=== PATIENT | female | born 1930 | race Caucasian/White ===

== ENCOUNTER 2019-04-22 10:40 | Inpatient (IN) | payer OTHER ==
[~2019-04-22] VITALS: Ht 154.9 cm; Wt 53.7 kg
[~2019-04-22 10:40] MED LIST: ADULT LOW DOSE81 MG PO; ALPRAZOLAM 0.50.5 M1 PO; CALCIUM 500 +1 EAC5 PO; CELEXA20 MG PO; CELEXA40 MG PO; CLONIDINE0.1 PO; COREG3.125 MG PO; COZAAR 50 MG TA50 M2 PO; ENALAPRIL MALEA20 MG PO; FISH OIL 1,0001 EAC5 PO; GARAMYCIN5 M1 OPHTHALMIC; GEMFIBROZIL 60600 MG PO; HYDROCHLOROTHIA25 M1 PO; HYDROCHLOROTHIA25 M2 PO; KLOR-CON 1010 MEQ PO; MULTIVITAMINS PO; NORVASC2.5 MG PO; NORVASC5 MG PO; PHENERGAN 25 MG25 M1 PO; PROTONIX40 M2 PO; VITAMIN D1000 UNI1 PO; ZANAFLEX4 MG PO
--- NOTE | 2019-04-22 13:53 | NUR ---
REC PT AROUND 1345, SET UP ON TELE, SEE SEPARATE INTERVENTIONS, CAME IN WITH R HIP FRACTURE, WHEN ASKED ABOUT PAIN, SHE JUST GIGGLED, THEN I WALKED IN AND SHE WAS MOANING. SAID HER LEG HURT. A&0X1, HX DEMENTIA. WILL FINISH ADMISSION AND LET PHYSICIAN KNOW IT'S DONE FOR HIS REVIEW. BED ALARM ENGAGED.
[2019-04-22] MEDS ORDERED: ALPRAZOLAM XR3 MG PO ×2 (13:57→13:58)
[2019-04-22] MEDS ORDERED: FLORAJEN460 MG PO (13:59)
[2019-04-22] MEDS ORDERED: BENGAY113 GM TRANSDERM (14:00)
[2019-04-22] MEDS ORDERED: MAGNESIUM250 M1 PO (14:01)
[2019-04-22] MEDS ORDERED: CALCIUM GLUCON500 GM PO (14:02)
[2019-04-22] MEDS ORDERED: CITRUCEL479 GM PO (14:03)
[2019-04-22] MEDS ORDERED: MAPAP16 MG/0.5 PO (14:05)
[2019-04-22] MEDS ORDERED: LOPERAMIDE2 MG PO (14:06)
[2019-04-22] MEDS ORDERED: MILK OF MA400 MG/5 M PO (14:07)
[2019-04-22] MEDS ORDERED: SEROQUEL 25 MG25 MG PO (14:07)
--- NOTE | 2019-04-22 14:36 | NUR ---
FAMILY ARRIVED, SON AND DAUGHTER IN LAW, ADDED IN SON'S NAME. DAUGHTER IN LAW STATES DNR
[2019-04-22 15:00] VITALS: BP 175/85
[2019-04-22 15:57] LABS: BASOPHILS 0.4 % (0.0-2.0); EOSINOPHILS 0.1 % (0.0-3.0); HEMATOCRIT 42.8 % (37.0-47.0); HEMOGLOBIN 13.3 gm/dL (12.0-15.0); LYMPHOCYTES 5.2 % (24.0-44.0); MCH 28.8 pg (26.0-34.0); MCHC 31.2 g/dL (28.0-37.0); MCV 92.3 fL (80.0-100.0); MONOCYTES 5.2 % (1.0-8.0); POLYS 89.1 % (36.0-66.0); RBC 4.63 mil/uL (4.20-5.00); WBC 11.2 thou/uL (4.0-11.0)
[2019-04-22 16:09] LABS: ALBUMIN 3.9 g/dL (3.4-5.0); CALCIUM 10.2 mg/dL (8.5-10.1); CREATININE 1.2 mg/dL (0.6-1.0); POTASSIUM 3.5 mmol/L (3.5-5.1); TOTAL BILIRUBIN 1.4 mg/dL (<0.1-1.0); TOTAL PROTEIN 7.8 g/dL (6.4-8.2)
[2019-04-22 16:37] LABS: PLATELET COUNT 90 thou/uL (150-400)
[2019-04-22 18:20] VITALS: BP 140/58
[2019-04-22 19:58] VITALS: BP 147/79
--- NOTE | 2019-04-22 22:35 | NUR ---
PATIENT ASSESSED AND IS ALERT X 1-2. SKIN WARM AND DRY. RESP ROE AND UNLABORED. HAS SOME DEMENTIA NOTED. SANTANA INTACT WITH URINE RETURN. HAS A AHEART MURMER NOTED. LEFT ARM SL FLUSHES WELL. LOOKS HEALTHY. HAS A FX OF LEFT FEMUR. IS AN DNR. BED ALARM ON. SKIN OKAY WITH NO SKIN ISSUES NOTED. TAKES MEDIACATION WELL. IS [employer] [place]. ON A REG DIET. ENCOURGED TO DRINK MORE. INCONT F BOWEL AT TIMES. REMAINS CONFUSED AT TIMES. ANSWERS APPRIOPRIATELY. CONT PLAN OF CARE.
[2019-04-23] VITALS (12 sets, daily range): BP systolic 102–157; BP diastolic 43–98
[2019-04-23 04:02] LABS: HEMATOCRIT 37.9 % (37.0-47.0); HEMOGLOBIN 11.8 gm/dL (12.0-15.0); MCH 28.8 pg (26.0-34.0); MCV 92.9 fL (80.0-100.0); RBC 4.08 mil/uL (4.20-5.00); RDW 16.6 % (10.5-14.5); WBC 8.7 thou/uL (4.0-11.0)
[2019-04-23 04:17] LABS: CALCIUM 9.2 mg/dL (8.5-10.1); CREATININE 1.2 mg/dL (0.6-1.0); POTASSIUM 3.3 mmol/L (3.5-5.1)
--- NOTE | 2019-04-23 04:42 | NUR ---
PATIENT REMAINS CONFUSED AT TIMES. PAIN MEDICATION GIVEN FOR RIGHT HIP PAIN. REPOSITIONED NEEDED. IV SITE HEALTHY. CONT PLAN OF CARE. SANTANA INTACT WITH EMILEE STINKY URINE.
--- NOTE | 2019-04-23 06:01 | NUR ---
CONSULT CALLED AND DR ESQUIVEL ALREADY SEEN HER. PLACED HER IN NPO.
--- NOTE | 2019-04-23 11:22 | NUR ---
ORDERS RECEIVED FOR PT EVAL AND TREAT. Pt WITH DISPLACED RIGHT FEMORAL NECK FX WITH PLANS FOR SURGERY PER ORTHO. WILL NEED UPDATED PT ORDERS S/P SURGICAL INTERVENTION PRIOR TO INITIATING PT SERVICES WITH Pt.
--- NOTE | 2019-04-23 17:25 | NUR ---
ASSUMMED PT CARE AT APPROXIMATELY 1430. PT AWAKE AND ORIENTED TO SELF. PT C HX OF DEMENTIA. PT GAURDING R LOWER HIP AND STATED SHE HAD PAIN. PT RECEIVED ANALGESICS. PT WAS NOT GAURDING HER R HIP AFTER ANALGESICS. PT AND PT'S FAMILY EDUCATED ABOUT POC. PT AND PT'S FAMILY STATED UNDERSTANDING AND DENIED HAVING FURTHER QUESTIONS. PT COMFORTABLE IN BED. PT DENIES FURTHER CONCERNS. ASSESSMENT CHARTED. VITAL SIGNS STABLE. PT R HIP DRESSING C/D/I.
[2019-04-24 04:08] VITALS: BP 105/43
[2019-04-24 04:51] LABS: HEMATOCRIT 28.9 % (37.0-47.0); MCH 29.4 pg (26.0-34.0); MCHC 31.1 g/dL (28.0-37.0); MCV 94.6 fL (80.0-100.0); RBC 3.06 mil/uL (4.20-5.00); RDW 16.6 % (10.5-14.5); WBC 8.8 thou/uL (4.0-11.0)
[2019-04-24 05:00] LABS: CALCIUM 8.6 mg/dL (8.5-10.1); CREATININE 1.2 mg/dL (0.6-1.0); POTASSIUM 4.3 mmol/L (3.5-5.1)
--- NOTE | 2019-04-24 06:45 | NUR ---
ASSUMED PT CARE AROUND 1900. PT RESTING IN BED. PT VSS WITH NO C/O OF PAIN. PT DRESSING C/D/I. PT RESTED THRU NIGHT WITH MINIMAL INTERRUPTIONS. WILL CONTINUE TO MONITOR PT PER POC.
[2019-04-24 07:20] VITALS: BP 115/55
--- NOTE | 2019-04-24 10:38 | 2DMMODE ---
[facility] [address] [place] [address] 2 D/M-MODE ECHOCARDIOGRAM Name: MECHELLE BYERS Room #: 214-P ADM IN M.R.#: [id number] Admission: 04/22/19 Attend Phys: Giovanni Loera Discharge: Date of : 10/23/[birth year] Report #: [id number] THIS REPORT FOR: //name// APPROVED REPORT Study performed: 04/24/2019 08:57:05 EXAM: Comprehensive 2D, Doppler, and color-flow Echocardiogram Patient Location: Bedside Room #: 214 Status: routine BSA: 1.50 HR: 85 bpm BP: 105/43 mmHg Rhythm: NSR Other Information Study Quality: Good Indications Aortic Valve Disease Congestive Heart Failure Mitral Valve Disease Hypertension/HDD 2D Dimensions RVDd: 39.52 mm IVSd: 11.68 (7-11mm) LVOT Diam: 17.80 (18-24mm) LVDd: 45.64 mm PWd: 12.61 (7-11mm) Ascending Ao: 26.15 (22-36mm) LVDs: 36.87 (25-40mm) Aortic Root: 26.11 mm IVC: 21.00 mm Volumes Left Atrial Volume (Systole) Single Plane 4CH: 60.45 mL Single Plane 2CH: 50.39 mL LA ESV Index: 41.00 mL/m2 Aortic Valve AoV Peak Pablo.: 5.77 m/s AO Peak Gr.: 133.22 mmHg LVOT Max P.81 mmHg AO Mean Gr.: 89.65 mmHg LVOT Mean P.83 mmHg AO V2 Mean: 4.56 m/s LVOT Max V: 0.67 m/s AO V2 VTI: 142.85 cm LVOT Mean V: 0.42 m/s ROSA (VTI): 0.22 cm2 LVOT V1 VTI: 12.61 cm [facility] [place] [address] [place] [address] 2 D/M-MODE ECHOCARDIOGRAM Name: MECHELLE BYERS Room #: 214-P [facility] IN ..#: [id number] Admission: 04/22/19 Attend Phys: Giovanni Loera Discharge: Date of : 10/23/[birth year] Report #: [id number] ROSA Vmax: 0.29 cm2 SV (LVOT): 31.37 mL Mitral Valve E/A Ratio: 1.7 MV Decel. Time: 110.81 ms MV E Max Pablo.: 1.44 m/s MV A Pablo.: 0.86 m/s MV PHT: 32.13 ms IVRT: 73.82 ms Pulmonary Valve PV Peak Pablo.: 0.65 m/s PV Peak Gr.: 1.69 mmHg Pulmonary Vein P Vein S: 0.16 m/s P Vein A: 0.18 m/s P Vein D: 0.21 m/s P Vein A Dur.: 73.8 msec P Vein S/D Ratio: 0.76 Tricuspid Valve TR Peak Pablo.: 4.03 m/s TR Peak Gr.: 65.11 mmHg PA Pressure: 80.00 mmHg Left Ventricle The left ventricle is normal size. There is global hypokinesis of the left ventricle. Mild concentric left ventricular hypertrophy. Left ventricular ejection fraction is moderately decreased. LVEF is 35%. Grade IV - fixed restrictive diastolic dysfunction. Right Ventricle The right ventricle is normal size. Atria Left atrium is dilated. Right atrium is dilated. Aortic Valve Aortic valve is heavily calcified. Mild aortic regurgitation. Severe aortic stenosis. Mitral Valve There is mitral annular calcification. Moderate mitral regurgitation. No evidence of mitral valve stenosis. Tricuspid Valve The tricuspid valve is normal in structure. There is moderate [facility] [address] [place] [address] 2 D/M-MODE ECHOCARDIOGRAM Name: MECHELLE BYERS Room #: 214-P [facility] IN ..#: [id number] Admission: 04/22/19 Attend Phys: Giovanni Loera Discharge: Date of : 10/23/[birth year] Report #: [id number] tricuspid regurgitation. Estimated PAP 70 mmHg. There is severe pulmonary hypertension. Pulmonic Valve The pulmonary valve is normal in structure. Mild pulmonic regurgitation. Great Vessels The aortic root is normal in size. The inferior vena cava is dilated with no inspiratory collapse. Pericardium Small to moderate posterior pericardial effusion. <Conclusion> The left ventricle is normal size. Mild concentric left ventricular hypertrophy. Left ventricular ejection fraction is moderately decreased. Grade IV - fixed restrictive diastolic dysfunction. The right ventricle is normal size. Left atrium is dilated. Aortic valve is heavily calcified. Severe aortic stenosis. Moderate mitral regurgitation. There is moderate tricuspid regurgitation. Estimated PAP 70 mmHg. There is severe pulmonary hypertension. Small to moderate posterior pericardial effusion. <ELECTRONICALLY SIGNED> By: Bridger Pimentel MD 04/24/19 1037 1037 [id number] Bridger Pimentel MD /INF
--- NOTE | 2019-04-24 11:54 | NUR ---
PT ADMITTED RELATED TO FALL AND FX R HIP. PT IS POD #1 S/P ORIF YESTERDAY. CM CALLED AND SPOKE WITH PT'S PT'S SON ALIZA BYERS HE'S LISTED DPOA. HE INDICATED THAT PT HAD BEEN LIVING AT [facility] AND THAT SHE HAD USED A FWW TO ASSIST WITH MOBILITY. PT'S DTR HAD BEEN AT [facility] BUT WAS OUT OR ROOM WHEN CM VISITED THIS AM. SON INDICATED THEY WERE INTERESTED IN PT RETURNING TO [facility] SKILLED UPON DC. CM ASKED DC WIRE SPLICER TO FAX REFERRAL OVER TO THEM FOR REVIEW FOR POSSIBLE ADMISSION. CM TO FOLLOW INDICATED WITH DC PLANNING.
[2019-04-24 12:05] VITALS: BP 84/44
--- NOTE | 2019-04-24 13:34 | NUR ---
[facility] RESID[facility] AT THEIR LTC UNIT. SPOKE WITH SHANA IN ADM THEY WILL ACCEPT FOR SKILLED STAY. SHE IS REQUESTING THAT ALL THERAPIES ARE ORDERED (OT,PT,ST) AT DISCHARGE. DP TO FOLLOW.
[2019-04-24 15:25] VITALS: BP 85/51
--- NOTE | 2019-04-24 16:58 | NUR ---
ASSUMED CARE 0700. ALERT TO SELF ONLY. DTR STATES HER CONFUSSION IS WORSE WHILE IN HOSPTIAL. POOR INTAKE. 500ML BOLUS TO TX HYPOTENSION. COMPLIANT WITH OT AND PT. UP TO CHAIR FOR 2 HOURS. CALLING OUT FOR SISTER YULISSA. TX ANXIETY THAT IS NOT AFFECTING. DRESSING TO RIGHT HIP IS C/D/I. FALL PRECAUTIONS IN PLACE. STAFF OVERSITE FOR NEEDS UNABLE TO DEMONSTRATE CALL LIGHT.
[2019-04-24 19:48] VITALS: BP 127/88
[2019-04-24 23:35] VITALS: BP 109/54
[2019-04-25 05:09] VITALS: BP 112/55
[2019-04-25 05:15] LABS: HEMATOCRIT 26.1 % (37.0-47.0); HEMOGLOBIN 8.1 gm/dL (12.0-15.0); MCH 29.2 pg (26.0-34.0); MCHC 30.9 g/dL (28.0-37.0); MCV 94.5 fL (80.0-100.0); RBC 2.77 mil/uL (4.20-5.00); RDW 16.9 % (10.5-14.5)
--- NOTE | 2019-04-25 05:17 | NUR ---
ASSUMED PT CARE AT 1900, PT ALERT AND ORIENTED TO SELF, CALLING FOR HELP WITH S/S OF PAIN, PAIN MED GIVED ORDERED WITH PARTIAL RELIEF, PT REFUSED PO MEDS ASSESSMENTS CHARTED, DRESSING TO THE RIGHT HIP DRY AND INTACT, PATIENT RESTING AT THIS TIME, WILL CONTINUE TO MONITOR
[2019-04-25 05:29] LABS: CALCIUM 8.9 mg/dL (8.5-10.1); POTASSIUM 5.3 mmol/L (3.5-5.1)
[2019-04-25 05:42] LABS: CREATININE 2.2 mg/dL (0.6-1.0)
[2019-04-25 07:30] VITALS: BP 121/64
--- NOTE | 2019-04-25 09:53 | NUR ---
per phys not stable for dc today creatine chaparro. Plan dc . updated facility.
[2019-04-25 15:37] VITALS: BP 101/53
--- NOTE | 2019-04-25 18:04 | NUR ---
ASSUMED CARE 0700. SLEEPING ON MORNING REPORT. AWAKE AND RESTLESS WITH REPEATING COMMENT ABOUT WATER. DTR AND SON BESIDE VOICE PT HAS CHRONIC BACK PAIN AND LOOKS UNCOMFORTABLE. PT GRIMACING AND TRYING TO READJUST SELF AND BECOMING ADGITATED. FAMILY AGREED CHANGE IN PT BEHAVIOUR IS PAIN RELATED. PAIN MANAGED WITH MEDIATION AND REPOSITIONING. PT HAS POOR INTAKT. SLEPT THIS AFTERNOON. FOOD AND WATER ENCOURAGED AT DINNER. PATIENT REMAINS DROWSY. REPOSITIONED. NOTIFIED PHYSICIAN OF POOR INTAKE AND OUTPUR. ORDERS TO KEEP SANTANA FOR ANOTHER 24 HOURS. CONTINUE TO MONITOR. FALL PRECAUTIONS IN PLACE. STAFF TO ANTICIPATE NEEDS.
[2019-04-25 19:18] VITALS: BP 90/56
--- NOTE | 2019-04-26 04:14 | NUR ---
Patients cares were assumed at 2300. patient was assessed and meds were passed. The patient had less yelling out this shift. meds were given. HOURLY ROUNDS WERE MADE, THE BED IS IN A LOW AND LOCKED POSITION. THE BED ALARM IS ON
[2019-04-26 05:17] VITALS: BP 100/49
[2019-04-26 07:45] LABS: CALCIUM 9.2 mg/dL (8.5-10.1); CREATININE 2.4 mg/dL (0.6-1.0); POTASSIUM 5.6 mmol/L (3.5-5.1)
[2019-04-26 08:32] VITALS: BP 118/50
[2019-04-26 11:31] VITALS: BP 135/105
[2019-04-26 15:56] VITALS: BP 113/41
[2019-04-26 20:31] VITALS: BP 130/41
--- NOTE | 2019-04-27 05:04 | NUR ---
PROGRESS PT A/O X4 VSS, UP WITH SBA. TOLERATING DIET IN ADEQUATE AMOUNTS. DENIES HEADACHE OR NEED FOR PAIN MEDICATION AT THIS TIME. PT UP AD AMY VOIDING QS. SCHEDULED FOR CAROTID US, ECHO, PT NPO AFER MN PENDING PROCEDURES . CONTINUE PLAN OF CARE
[2019-04-27 05:42] LABS: ALBUMIN 2.9 g/dL (3.4-5.0); CALCIUM 8.2 mg/dL (8.5-10.1); CREATININE 2.4 mg/dL (0.6-1.0); PHOSPHORUS 4.2 mg/dL (2.5-4.9); POTASSIUM 5.3 mmol/L (3.5-5.1)
--- NOTE | 2019-04-27 06:56 | NUR ---
PROGRESS PT CONFUSED AND YELLING OUT ALL NIGHT UNABLE TO RE-ORIENT. PAIN MEDICATION GIVEN WITH VERY LITTLE EFFECT, REMOVING CLOTHES AND TELEMETRY PATCHES. DRSG TO RIGHT HIP C/D/I PEDAL PULSE POSITIVE, BRISK CAP REFILL ABLE TO DORSI AND PEDAL FLEX. UNABLE TO RATE PAIN. SCD'S AND [address] IVF'S INFUSING ORDERED, REPOSITIONED Q2HRS PT ABLE TO REMOVE PILLOWS AT WILL ENCOURAGED TO STAY TURNED TO PREVENT BEDSORES.
[2019-04-27 08:00] VITALS: BP 122/67
[2019-04-27 09:50] LABS: MCHC 30.7 g/dL (28.0-37.0); MCV 94.4 fL (80.0-100.0); RBC 2.76 mil/uL (4.20-5.00); RDW 17.1 % (10.5-14.5); WBC 17.2 thou/uL (4.0-11.0)
[2019-04-27 10:53] LABS: ANISOCYTOSIS 1+; METAMYELOCYTES 1 %
[2019-04-27 10:54] LABS: PLATELET COUNT 55 thou/uL (150-400)
[2019-04-27 10:55] LABS: HYPOCHROMASIA 1+; POLYCHROMASIA OCCASIONAL
[2019-04-27 12:00] VITALS: BP 123/60
--- NOTE | 2019-04-27 13:11 | NUR ---
Case discussed with the care team. Pt with poor intake, CXR and xray of abd pending. Worsening delierium. The attending visited with the pt's son this am regarding her plan of care. [facility] can accept the pt tomorrow or on Wednesday. They do not take weekend admissions and they can not provide transport. The pt may need [facility] arranged if unable to tolerate w/c van at al. Will follow.
[2019-04-27 15:50] LABS: URINE BILIRUBIN NEGATIVE (Negative); URINE BLOOD 1+ (Negative); URINE CLARITY CLOUDY; URINE COLOR YELLOW; URINE GLUCOSE-RANDOM* NEGATIVE (Negative); URINE KETONES NEGATIVE (Negative); URINE NITRITE-REFLEX NEGATIVE (Negative); URINE PROTEIN (DIPSTICK) NEGATIVE (Negative); URINE SPECIFIC GRAVITY 1.025 (1.005-1.035); URINE UROBILINOGEN 0.2 E.U./dl (0.2-1.0)
[2019-04-27 15:56] LABS: URINE LEUKOCYTES-REFLEX 2+ (Negative)
[2019-04-27 16:00] VITALS: BP 117/60
[2019-04-27 16:04] LABS: AMORPHOUS URATES Many /LPF (None Seen); SQUAMOUS None Seen /LPF (0-3)
[2019-04-27 16:05] LABS: BACTERIA-REFLEX 1-9 Few /HPF (None Seen); CASTS None Seen /LPF (None Seen); URINE RBC None Seen /HPF (0-2); URINE WBC-REFLEX 6-15 Few /HPF (0-5)
--- NOTE | 2019-04-27 17:59 | NUR ---
PT ALERT AND ORIENTED TO SELF. MOANING IN PAIN. PRN IV PAIN MED GIVEN WITH PARTIAL RELIEF. TURNED AND REPOSITIONED Q 2 HOURS AND NEEDED. HAD BM THIS SHIFT. RIGHT HIP INCISION C/D/I. APPETITE POOR. EVALUATED BY SPEECH. NPO ORDER FOR NOW. PPN ORDERED. FALL PRECAUTION IN PLACE. SON UPDATED ON PT'S PROGRESS. WILL CONTINUE TO MONITOR.
[2019-04-27 20:00] VITALS: BP 117/63
[2019-04-27 20:17] LABS: ABSOLUTE RETIC COUNT 0.1485 10^6/uL; OBSERVED RETIC COUNT 4.68 % (0.6-2.6)
[2019-04-27 20:34] LABS: APTT 35.4 Seconds (24.5-32.8); FIBRINOGEN 180.5 mg/dL (210-360); PROTIME 20.7 Seconds (9.3-11.4)
[2019-04-27 20:42] LABS: D-DIMER 16.32 ug/mLFEU (0.19-0.50)
[2019-04-28 03:06] LABS: IgA 498 mg/dL (64-422); IgG 873 mg/dL (700-1600); IgM 48 mg/dL (26-217)
[2019-04-28 03:16] VITALS: BP 138/71
[2019-04-28 03:23] LABS: BASOPHILS 0.5 % (0.0-2.0); HEMATOCRIT 30.9 % (37.0-47.0); HEMOGLOBIN 9.3 gm/dL (12.0-15.0); LYMPHOCYTES 4.2 % (24.0-44.0); MCH 28.7 pg (26.0-34.0); MCHC 30.1 g/dL (28.0-37.0); MCV 95.4 fL (80.0-100.0); MONOCYTES 5.7 % (1.0-8.0); PLATELET COUNT 75 thou/uL (150-400); POLYS 89.6 % (36.0-66.0); RBC 3.24 mil/uL (4.20-5.00); RDW 17.2 % (10.5-14.5); WBC 17.7 thou/uL (4.0-11.0)
[2019-04-28 03:35] LABS: CALCIUM 8.7 mg/dL (8.5-10.1); CREATININE 1.6 mg/dL (0.6-1.0); MAGNESIUM 2.6 mg/dL (1.8-2.4)
[2019-04-28 03:42] LABS: POTASSIUM 5.6 mmol/L (3.5-5.1)
--- NOTE | 2019-04-28 04:41 | NUR ---
PATIENT CARES WERE ASSUMED AT SHIFT CHANGE. PATIENT WAS ASSESSED AND MEDS WEEE PASSED. HOURLY ROUNDING WAS DONE. THE BED IS IN A LOW AND LOCKED POSITION. THE BED ALARM IS ON
[2019-04-28 08:00] VITALS: BP 134/65
--- NOTE | 2019-04-28 10:11 | NUR ---
VASCULAR ACCESS NURSE NOTIFIED TO PLACE A PICC LINE FOR PPN AND ACCESS. THE PATIENTS RN IS PAGING DR. MACKAY TO SEE IF A PICC IS NEEDED, NO CONSENT FOR A PICC AT THIS TIME. STAFF HAS PLACED A PIV FOR ACCESS. I WILL AWAIT RETURN CALL IF PICC IS NEEDED
--- NOTE | 2019-04-28 11:31 | NUR ---
Nutrition: REC consider adding 250 mL 20% lipids daily to PPN to better meet needs til diet advancement possible.
--- NOTE | 2019-04-28 15:52 | NUR ---
FAXED CLINICAL UPDATE TO [facility] SPOKE WITH EBONY AT FACILITY SHE REQUESTED REFAXING UPDATE RECEIVED CONFIRMATION. DP TO FOLLOW.
[2019-04-28 16:00] VITALS: BP 152/56
--- NOTE | 2019-04-28 17:09 | NUR ---
ASSESSMENTS AND INTERVENTIONS DOCCUMENTED. PATIENT RESTLESS AND MOANING AT SHIFT CHANGE. PAIN MEDICATION UNABLE TO BE GIVENT BECAUSE PATIENT DID NOT HAVE IV ACCESS. NIGHT RN GUICHO STATING PICC LINE WAS ORDERED. NO ORDERS WRITTEN. THOMPSON CHAMBERLAIN. RN PLACED PERIPHERAL AT BEDSIDE. PAIN MEDICATION GIVEN AND PATIENT MORE COMFORTABLE. SON AT BEDSIDE CONCERNED ABOUT PATIENT AND PAIN MANAGEMENT. SON UPDATED ABOUT PLAN OF CARE. SURGICAL DRESSING CHANGED BY RN. THE PLAN OF CARE IS TO TREAT INFECTION AND PAIN MANAGEMENT
[2019-04-28 21:00] VITALS: BP 118/51
[2019-04-29 04:45] VITALS: BP 101/83
[2019-04-29 08:15] VITALS: BP 114/55
--- NOTE | 2019-04-29 08:16 | NUR ---
ASSUME CARE 1900. PT A/O TO SELF. NOTED CONFUSION ALL THROUGH THE NIGHT. PATIENT MOANING AND RESTLESS, BUT CANNOT COMMUNICATE NEEDS. RIGHT HIP DRESSING CDI. FENTANYL GIVEN TO PATIENT FOR PAIN RELIEF. ASSESSMENT CHARTED. POOR PROGRESSING WITH POC. WILL CONTINUE TO MONITOR AND FOLLOW POC
[2019-04-29 11:24] LABS: HEMOGLOBIN 9.5 gm/dL (12.0-15.0); MCHC 30.2 g/dL (28.0-37.0); WBC 18.1 thou/uL (4.0-11.0)
[2019-04-29 11:26] LABS: HEMATOCRIT 31.3 % (37.0-47.0); MCH 28.8 pg (26.0-34.0); MCV 95.6 fL (80.0-100.0); RBC 3.28 mil/uL (4.20-5.00); RDW 17.4 % (10.5-14.5)
[2019-04-29 11:34] LABS: CREATININE 1.4 mg/dL (0.6-1.0); MAGNESIUM 2.6 mg/dL (1.8-2.4); POTASSIUM 4.7 mmol/L (3.5-5.1)
[2019-04-29 11:48] LABS: CALCIUM 8.8 mg/dL (8.5-10.1)
[2019-04-29 12:00] VITALS: BP 133/69
--- NOTE | 2019-04-29 12:52 | NUR ---
CONFUSED. UNINTELLIGIBLE SPEECH. RARELY OPENS EYES. MEDICATED FOR PAIN ALLOWED. ADULT SON AT BEDSIDE. FREQUENTLY REMOVES GOWN AND TELE LEADS. SR PER TELE. STARTING CLINIMAX TODAY. FALL PRECAUTIONS IN PLACE. WILL CONTINUE TO FOLLOW CLOSELY.
[2019-04-29 17:39] VITALS: BP 128/71
--- NOTE | 2019-04-29 18:19 | NUR ---
PATIENT'S SON, ALIZA,
[2019-04-29 20:15] VITALS: BP 127/78
[2019-04-30 04:45] VITALS: BP 114/64; BP 126/67
[2019-04-30 05:52] LABS: ABSOLUTE NEUTROPHILS 13.6 thou/uL (1.4-8.2); BASOPHILS 0.1 % (0.0-2.0); EOSINOPHILS 0.1 % (0.0-3.0); HEMATOCRIT 31.6 % (37.0-47.0); HEMOGLOBIN 9.4 gm/dL (12.0-15.0); LYMPHOCYTES 3.4 % (24.0-44.0); MCH 28.9 pg (26.0-34.0); MCHC 29.9 g/dL (28.0-37.0); MONOCYTES 7.8 % (1.0-8.0); PLATELET COUNT 43 thou/uL (150-400); POLYS 88.6 % (36.0-66.0); RBC 3.26 mil/uL (4.20-5.00); RDW 17.9 % (10.5-14.5); WBC 16.9 thou/uL (4.0-11.0)
[2019-04-30 06:03] LABS: CALCIUM 8.7 mg/dL (8.5-10.1); CREATININE 1.3 mg/dL (0.6-1.0); MAGNESIUM 2.4 mg/dL (1.8-2.4); POTASSIUM 4.5 mmol/L (3.5-5.1)
[2019-04-30 06:06] LABS: LARGE PLATELETS SEVERAL; PLATELET ESTIMATE SLIGHTLY DECREASED; POLYCHROMASIA 1+
--- NOTE | 2019-04-30 06:52 | NUR ---
ASSUME CARE 1900. PT/VITALS STABLE. A/O TO PERSON AND VERY CONFUSED. POOR ACTIVITY TOLERANCE. ASSESSMENT CHARTED. POOR PROGRESS TO POC. MODERATE REST NOTED. SR ON MONITOR. INCONTINENT OF STOOL. WILL CONTINUE TO MONITOR AND FOLLOW WITH POC
[2019-04-30 08:30] VITALS: BP 142/59
[2019-04-30 12:00] VITALS: BP 121/60
--- NOTE | 2019-04-30 13:12 | NUR ---
NOTED PATIENT YELLING THIS AM. SHE IS QUITE VERBAL AND WILL NOT INDICATE IF SHE IS IN PAIN OR NOT. PRN PAIN ADMININSTERED AND IT WAS EFFECTIVE IN CONTROLLING PAIN SHE IS NOW SLEEPING. HAS NOT HAD A BOWEL MOVEMENT THIS AM. WILL CONT WITH PLAN OF CARE.
--- NOTE | 2019-04-30 13:13 | HC ---
[facility] [place] [address] CONSULTATION Name: ALMA MENDIOLA Room #: 214-P ADM IN M.R.#: [id number] Admission: 04/22/19 Attend Phys: Giovanni Marshall Discharge: Date of : 10/23/[birth year] Report #: [id number] THIS REPORT FOR: //name// CC: Blake Schneider DATE OF SERVICE: 04/29/2019 CONSULTATION: Infectious diseases. HISTORY OF PRESENT ILLNESS: Alma Mendiola is an 88-year-old white female who is transferred from her half-way to acute care on 04/22 because of a fall from the toilet causing an intertrochanteric displaced fracture of the right femoral neck. The patient came to the hospital on 04/22. She underwent open reduction and internal fixation with nailing on 04/23. Postoperatively, the patient has not done well. She has become more delirious. She has been very difficult to control. In addition, she has developed a decrease in her platelet count. It was thought the patient may be suffering from sepsis. On 04/28, Rocephin was added and today fluconazole was added because of yeast in the urine. Infectious Disease consultation requested to assist with antibiotic evaluation and management. PAST MEDICAL HISTORY: Significant for dementia and anxiety. The patient has a history of congestive heart failure and hypertension. During this hospitalization, it was noted the patient had severe aortic stenosis as well as moderate mitral and tricuspid regurgitation and moderate pulmonary hypertension. ALLERGIES: The patient has no known drug allergies. FAMILY HISTORY: Noncontributory. SOCIAL HISTORY: The patient recently was transitioned from assisted living to care home because of progressive dementia. Apparently, the patient was very obsessed on her bowels and using the freedom of assisted living to go to the store to buy a number of laxatives, stool softeners, enemas and other aids to resolve what she perceived as constipation. She was doing damage with all of her bowel manipulations. The patient is . She does not have any history of tobacco, alcohol or drug use. REVIEW OF SYSTEMS: Unavailable as the patient now is too delirious to answer any questions. She is essentially nonverbal, will although respond to aversive stimuli. [facility] [address] [place] [address] CONSULTATION Name: ALMA MENDIOLA Room #: 214-P [facility] IN .R.#: [id number] Admission: 04/22/19 Attend Phys: Giovanni Marshall Discharge: Date of : 10/23/30 Report #: [id number] PHYSICAL EXAMINATION: GENERAL: The patient appears awake, alert, but confused and nonverbal. She seems somewhat agitated, but not uncomfortable nor in any distress. VITAL SIGNS: Show the patient has been afebrile throughout this hospitalization. Blood pressure 128/71. SKIN: Pale without any rash, lesion or exanthem. Surgical wound was examined. It is intact. There is some serosanguineous drainage from the more distal wound. There is no redness or warmth. The wound was not particularly tender. ENT: Negative except for the delirium. Oral cavity is grossly normal. NECK: No adenopathy. HEART: Sounds S1, S2. LUNGS: Clear to anterior auscultation. ABDOMEN: Belly is soft and not tender. NEUROLOGIC: Mentally, the patient was awake, but would not answer any questions. She had taken off all of her clothing, was lying in bed naked. The nurse notes that she will take out her IV if she noticed it. LABORATORY DATA: The white count is 18,000, hemoglobin 9.8, hematocrit low. The platelets have gone from 90,000 to 46,000. The chemistry showed the sodium has gone from 142 to 150, potassium is 4.7, chloride 114, bicarbonate 29, BUN has gone from 27 to 85, the creatinine has gone from 1.2 to 2.4, now down to 1.4. The microbiology laboratory report blood cultures x2 04/27 are no growth so far. Urine culture shows Zabrina. Abdominal film shows continued ileus. The hip appears to be in anatomic alignment with pins. ASSESSMENT AND PLAN: In summary, the patient is with baseline dementia, who was getting worse. She has fallen, broken her hip and now has acute delirium and is somewhat difficult to control. She is requiring sedatives and anxiety agents, which may be interfering with her sensorium. The low platelet count and leukocytosis associated with the delirium and suggest possibility of sepsis. There is no obvious source of sepsis. I would like to do a chest x-ray looking for pneumonia. Blood cultures so far are no growth. Yeast in the urine is generally very well tolerated, not typically a cause of sepsis. Her wound looks to have slightly more drainage than one would hope for, but essentially bland without any suspicion for infection. The patient's electrolytes suggest there may be an element of dehydration, which may be exaggerating the white count as well. For now, I would suggest we continue the Rocephin. If all the cultures remain negative in the next 24-48 hours, we should probably stop the Rocephin to avoid deleterious effects on the bowels. We will continue the fluconazole for a 5-day course. I would like to do a followup of white count and check a procalcitonin as well as check a chest x-ray. Electrolytes and hydration will be corrected. For now, it is possible the patient may be having an infection complication, but [facility] [place] [address] CONSULTATION Name: ALMA MENDIOLA Room #: 214-P ADM IN M.R.#: [id number] Admission: 04/22/19 Attend Phys: Giovanni Marshall Discharge: Date of : 10/23/30 Report #: [id number] it is not obvious from the workup to date. If we could manage her delirium without sedating drugs, possibly using a sitter instead of medication, her mental status may return to her baseline sooner. It is difficult for her not to be confused being in the hospital now for almost a week with pain medication and all the other interventions. I appreciate the opportunity of working in the care of the patient. I will be happy to follow through the weekend until Dr. Ibanez returns on Wednesday. Thank you for this consultation. <ELECTRONICALLY SIGNED> By: Deuce Maldonado MD 04/30/19 1313 [id number] Deuce Maldonado MD /nt
[2019-04-30 16:20] VITALS: BP 111/69
--- NOTE | 2019-04-30 19:15 | NUR ---
CARE ASSUMED FROM ANAHI ZAYAS. DR. MACKAY UPDATED ON PT'S PROGRESS. NEW ORDERS NOTED. CHECKED FREQUENTLY AND NEEDS MET. WILL CONTINUE TO MONITOR PAIN EFFECTIVELY.
[2019-04-30 19:38] VITALS: BP 105/66
[2019-05-01 03:27] VITALS: BP 117/76
[2019-05-01 04:30] LABS: CALCIUM 8.6 mg/dL (8.5-10.1); CREATININE 1.3 mg/dL (0.6-1.0); MAGNESIUM 2.5 mg/dL (1.8-2.4); POTASSIUM 4.7 mmol/L (3.5-5.1)
[2019-05-01 04:35] LABS: % SATURATION 30 % (20-39); IRON 64 ug/dL (50-170); TIBC 212 ug/dL (250-450)
[2019-05-01 04:49] LABS: EOSINOPHILS 0.1 % (0.0-3.0); HEMOGLOBIN 9.1 gm/dL (12.0-15.0)
[2019-05-01 04:51] LABS: ABSOLUTE NEUTROPHILS 12.8 thou/uL (1.4-8.2); BASOPHILS 0.5 % (0.0-2.0); HEMATOCRIT 30.2 % (37.0-47.0); LYMPHOCYTES 3.4 % (24.0-44.0); MCH 29.3 pg (26.0-34.0); MCV 97.7 fL (80.0-100.0); PLATELET COUNT 40 thou/uL (150-400); RBC 3.09 mil/uL (4.20-5.00); WBC 16.5 thou/uL (4.0-11.0)
--- NOTE | 2019-05-01 04:57 | NUR ---
ASSUMED PT CARE AROUND 1900. PT IS CONFUSED AND HAS BEEN NONVERBAL TONIGHT. SHE MOANS AND IS RESTLESS WHEN IN APPARENT PAIN. PAIN MEDICATION GIVEN INDICATED. PT SLEPT MOST OF THE NIGHT. RESP EVEN AND UNLABORED. VSS. SANTANA TO DD. Q2H TURN TO PREVENT FURTHER SKIN BREAKDOWN. FALL PRECAUTIONS IN PLACE. NOT PROGRESSING WELL TOWARD POC GOALS. WILL CONTINUE TO MONITOR FURTHER.
[2019-05-01 05:44] LABS: FOLIC ACID 13.9 ng/mL (8.6-58.9)
[2019-05-01 07:56] VITALS: BP 125/54
[2019-05-01 11:40] VITALS: BP 114/57
--- NOTE | 2019-05-01 11:45 | NUR ---
WOUND CARE CONSULT; THIS PATIENT HAS A FALL WITH A HIP FRACTURE SURGICALLY REPAIRED. THE STAPLED INSCISION POINTS ARE INTACT. THERE WAS SEROSANGINOUS DRAINAGE ON THE DRESSING. THE COCCYX AREA HAS AN PRONOUNCED BONY PROMINENCE WHICH THE PATIENT IS AT MUCH MORE INCREASE RISK OF A PRESSURE WOUND. RECOMMENDATION; Q2H TURNING, A SACRAL FOAM DRESSING AND A LOW AIR LOSS BED PUMP. DISCUSSED WITH CHANA
--- NOTE | 2019-05-01 12:31 | NUR ---
Noted PPN will stop and central line for tpn ordered. May want to consider use of GI tract if ileus has resolved and place dobhoff. If tube feed considered, recommend jevity 1.5 to start 25ml/hr and goal 40ml/hr. If TPN preferred, then recommend 5%AA, 15% dex, and 2.9% lipids at goal rate 60ml/hr
--- NOTE | 2019-05-01 12:59 | NUR ---
FAXED CLINICAL UPDATE TO [facility] SPOKE WITH EBONY IN ADM SHE RECEIVED UPDATE. DP TO FOLLOW.
[2019-05-01 16:09] LABS: GLOBULIN TOTAL 2.7 g/dL (2.2-3.9); M-SPIKE Not Observed g/dL (Not Observed)
--- NOTE | 2019-05-01 16:27 | NUR ---
patient cont to be confused, not opening eyes. ST to see patient today. Sp with son at bedside. Updated [facility]. Son reports patient was rec [facility] program of [facility] were a RN practioner sees monthly. Sp with [place] and rec number [phone] for RN Maury who schedules and sees patients. Her mailbox full will try again at later date. Plan return to [facility] once stable.
--- NOTE | 2019-05-01 16:57 | NUR ---
ASSESSMENT CHARTED. PT ALERT AND ORIENTED TO SELF. MOARNING IN PAIN. PRN PAIN MED GIVEN WITH PARTIAL RELIEF. CHANGED AND REPOSITIONED Q 2 HRS AND NEEDED. PICC LINE PLACED IN IR. WILL CONTINUE TO MONITOR.
[2019-05-01 20:13] VITALS: BP 135/62
[2019-05-02 03:06] VITALS: BP 127/62
[2019-05-02 06:44] LABS: HEMATOCRIT 27.9 % (37.0-47.0); HEMOGLOBIN 8.5 gm/dL (12.0-15.0); MCH 30.1 pg (26.0-34.0); MCHC 30.6 g/dL (28.0-37.0); MCV 98.5 fL (80.0-100.0); RBC 2.83 mil/uL (4.20-5.00); RDW 18.2 % (10.5-14.5)
[2019-05-02 06:59] LABS: ALBUMIN 2.5 g/dL (3.4-5.0); CALCIUM 8.4 mg/dL (8.5-10.1); CREATININE 1.1 mg/dL (0.6-1.0); MAGNESIUM 2.4 mg/dL (1.8-2.4); PHOSPHORUS 1.5 mg/dL (2.5-4.9); POTASSIUM 4.5 mmol/L (3.5-5.1); TOTAL BILIRUBIN 2.2 mg/dL (<0.1-1.0); TOTAL PROTEIN 5.4 g/dL (6.4-8.2)
--- NOTE | 2019-05-02 07:20 | NUR ---
PATIENT CONFUSED.REPOSITIONED Q 2 HOURS AND NEEDED.TPN AT 40 ML/MR AND D5 AT 100 ML/HR INFUSING THRU PICC LINE.O2 TITRATED DOWN TO 2L NASAL CANNULA AND SPO2 IS 97%.REPORT GIVEN TO ESPERANZA ABBOTT RN.SON WAS INFORMED OF THE ROOM NUMBER WHERE PATIENT IS GOING TO.PATIENT LEFT THE UNIT AT 0715 AM, GOING TO ROOM 448.POC CONTINUED.
[2019-05-02 09:19] VITALS: BP 142/75
--- NOTE | 2019-05-02 18:00 | NUR ---
PT RECEIVED FROM CCU THIS AM. PT ASSESSED. PT AWAKE BUT CONFUSED. CALM BUT NOT ABLE TO FOLLOW COMMANDS. TURNED Q2HRS. RT HIP VERY SWOLLEN AND BRUISED, SS DRAINAGE FROM PROXIMAL END OF INCISION. CT CHEST DONE AND PT NEEDING TO HAVE THORACENTESIS. DR. MACKAY NOTIFIED TEST WILL NOT BE DONE UNTIL WEDNESDAY UNLESS DEEMED URGENT. SPEECH EVALED HER AND STATED SHE IS NOT READY FOR PO.
[2019-05-02 18:27] VITALS: BP 112/95
[2019-05-02 19:40] VITALS: BP 118/78
[2019-05-03] VITALS (8 sets, daily range): BP systolic 91–130; BP diastolic 45–86
--- NOTE | 2019-05-03 06:03 | NUR ---
NOC ASSUMED OF CARE @1900 PT ASSESSED AT START OF SHIFT CONFUSED. PICC LINE INTACT AND TPN INFUISING. BLOOD SUGAR CHECKS DONE. Q2 TURNS DONE FRQ THIS SHIFT. FOLLEY CATH INTACT AND DRAINING. PT SAUK-SUIATTLE AND STILL NPO PER SPEECH THERAPIST REC. FALL PREC IN PLACE AND WILL CONT WITH POC TILL EOS.
[2019-05-03 10:33] LABS: BE(vivo) -2.4 mmol/L (-2 to +3); HCO3 21.2 mmol/L (22.0-26.0); PO2 88.8 mmHg (80.0-100.0); pH 7.439 (7.360-7.450); sO2 97.1 % (92.0-98.0)
[2019-05-03 10:44] LABS: HEMATOCRIT 27.1 % (37.0-47.0); HEMOGLOBIN 8.4 gm/dL (12.0-15.0); MCH 31.5 pg (26.0-34.0); MCHC 30.9 g/dL (28.0-37.0); MCV 102.1 fL (80.0-100.0); RBC 2.66 mil/uL (4.20-5.00); RDW 20.2 % (10.5-14.5); WBC 22.4 thou/uL (4.0-11.0)
[2019-05-03 12:04] LABS: INR 2.1; PROTIME 21.3 Seconds (9.3-11.4)
[2019-05-03 12:13] LABS: ABSOLUTE NEUTROPHILS 21.1 thou/uL (1.4-8.2); METAMYELOCYTES 2 %; NUCLEATED RBCS 9 /100WBC
[2019-05-03 12:14] LABS: ANISOCYTOSIS 1+; LARGE PLATELETS SEVERAL; PLATELET ESTIMATE MARKEDLY DECREASED; POLYCHROMASIA 1+
[2019-05-03 12:20] LABS: PLATELET COUNT 17 thou/uL (150-400)
[2019-05-03 13:14] LABS: ALBUMIN 2.6 g/dL (3.4-5.0); CALCIUM 8.4 mg/dL (8.5-10.1); CREATININE 1.3 mg/dL (0.6-1.0); MAGNESIUM 2.3 mg/dL (1.8-2.4); POTASSIUM 4.6 mmol/L (3.5-5.1); TOTAL BILIRUBIN 2.3 mg/dL (<0.1-1.0); TOTAL PROTEIN 5.7 g/dL (6.4-8.2)
[2019-05-03 13:18] LABS: TROPONIN-I 1.46 ng/mL (<0.06)
--- NOTE | 2019-05-03 14:26 | NUR ---
1235 PT TX FROM 4S, TO START BIPAP. LABS DRAWN, DR STRICKLAND TALKING WITH FAMILY. NOT BAY BIPAP. PLAN CHANGED TO COMFORT CARE. PRN MEDS ORDERED. FAMILY AT BEDSIDE. SPIRITUAL CARE CONSULTED AT 1350, NO RESPONSE.
--- NOTE | 2019-05-03 15:44 | NUR ---
ASSUMED CARE OF THE PT AT 0700. PT WAS TACHYCARDIC AND TACHYPNEIC UPON ASSESSMENT, UNABLE TO AROUSE PT TO SPEAK OR OPEN BOTH EYES. FALL PRECAUTIONS ARE IN PLACE. CATHETER WAS INTACT AND POTENT. O2 AT 97%. THORACENTESIS WITH US ORDERED, DOCTOR WAS NEEDED FOR FURTHER INFORMATION, ADVISED DOCTOR. XRAY OF CHEST DONE. STAT LABS ORDERED AND SENT TO THE LAB. PORT IN UPPER R ARM CLEANED ANF FLUSHED. PTS FAMILY WAS ADVISED OF THE SITUATION AND CAME TO THE HOSPITAL AND TRANSFERED WITH THE PT. PT IS NOW IN THE ICU.
--- NOTE | 2019-05-03 21:05 | NUR ---
PATIENT TRANSFERED TO 4 UNIT FROM ICU ABOUT 1620 AND ON COMFORT CARE WITH MULTIPLE FAMILY MEMBERS AT BEDSIDE. ALIZA (SON), LIDA (DAUGHTER), BOOKER RN ([facility]). PATIENT ORIENTED TO SELF AND RESPONDS TO PAIN STIMULUS. EYES ARE CLOSE AND LABORED BREATHING. PATIENT WILL RAISE EYEBROWS WHEN HER NAME IS CALLED. PATIENT GIVEN MORPHINE 2MG ONCE FOR AIR HUNGER.
--- NOTE | 2019-05-04 02:17 | NUR ---
PATIENT ASSESSED AND IS ALERT X 1 TO SELF. HAS HER EYES CLOSED ALL THE TIME. RESPOSITIONED AND SHE DID OPEN HER EYES. ATIVAN AND MORPHINE GIVEN ALTERNATE FOR AIR HUNGER. SON AND DAUGHTER AT BEDSIDE. SANTANA INTACT AND HAS BEEN EMILEE IN COLOR. SKIN IS VERY CLAMMY AT TIMES. RIGHT UPPER ARM SWOLLEN WHERE THE PICC IS WITH ALOT OF BRUISING NOTED. HAS AIR HUNGER WITH LABORED BREATHING NOTED. VS STABLE WITH RESP ABOUT 16 OR 18. FAMILY DOES NOT HER MOVED. RIGHT HIP HAS SOME BLEEDING NOTED WHICH IS SEROUSANGUIOUS. REMAINS LETHARGIC MOST OF THE SHIFT. NO PO INTACT. RIGHT PICC NOTED THAT FLUSHES WELL. 02 AT 2LNC. CONT PLAN OF CARE. FAMILY REMAINS AT BEDSIDE. BREATHING REMAINS LABORED. IS ON COMFORT CARE.
--- NOTE | 2019-05-04 02:54 | NUR ---
PATIENT REMAINS HAVING LABORED BREATHING. MORHINE AND ATIVAN CONTINUES ORDERED. REFUSED TO TURN. FAMILY AT BEDSIDE. WILL CONT TO MONITOR.
[2019-05-04 04:44] VITALS: BP 137/72
--- NOTE | 2019-05-04 07:28 | NUR ---
Nutrition update: Pt previously on PPN then changed to TPN at start of week, but TPN was dc'ed yesterday on 05/03. Pt transferred out of ICU and changed to comfort cares last night. Nursing notes mention pt is lethargic, has air hunger. Is ordered a regular diet - but will only receive PO food/liquid per pt request. No po intake at this time. Given choice of comfort cares and pt's current condition, no further nutrition recommendations indicated at this time. Will be available if there is a change in pt status or goals of care.
[2019-05-04 07:40] VITALS: BP 111/86
--- NOTE | 2019-05-04 08:26 | EKG ---
[place] [address] [facility] [place] [address] ELECTROCARDIOGRAM REPORT Name: MECHELLE BYERS Room #: 459-P ADM IN M.R.#: [id number] Admission: 04/22/19 Attend Phys: Nivia Mclean MD Discharge: Date of : [birth year] Report #: [id number] THIS REPORT FOR: //name// [facility] Test Date: 2019-05-03 Test Time: 13:10:48 Pat Name: MECHELLE BYERS Department: Room: 45 Gender: F [place] Tower Loader: VASILE : 1930 Requested By: Jean Ibanez Order Number: [id number] MD: Clif Moreira Measurements Intervals [place] Rate: 108 P: 77 MT: 148 QRS: 72 QRSD: 89 T: 233 QT: 277 QTc: 371 Interpretive Statements Sinus tachycardia Atrial premature complexes Abnormal R-wave progression, late transition Nonspecific ST and T wave abnormality Compared to ECG 04/16/2014 08:26:[address] and T wave abnormality is now present Electronically Signed On 05-04-2019 8:25:56 [employer]IOR [employer]CH [employer]NAGER by Clif Moreira [email or web address] <ELECTRONICALLY SIGNED> By: Clif Moreira MD, [facility] 05/04/19 0825 09 Clif Moreira MD, [facility] /EPI
--- NOTE | 2019-05-04 11:58 | NUR ---
DISCHARGE PLANNING. PATIENT REFERRAL FAXED TO [facility] PER REQUEST. CALL PLACED TO [facility] INTAKE. SPOKE WITH INTAKE. JASSON FULLER TO VISIT WITH FAMILY TODAY. JONNY TO CALL SW WITH TIME. UNIT SW AWARE. FOLLOWING.
[2019-05-04 14:00] VITALS: BP 82/51
--- NOTE | 2019-05-04 14:06 | NUR ---
FAMILY NO2 WANTING PT TO BE COMFORT CARE AND HAD ASKED FOR ASSESSMENT FOR POSSIBLE ADMISSION TO HOSPICE HOUSE. REFERRAL SENT FOR REVIEW. JONNY IN INTAKE CALLED AND INDICATED THAT THEY WOULD DO A PEER TO PEER WITH DR. STRICKLAND. AWAITING DETERMINATION. CM TO ASSIST INDICATED WITH DC PLANNING.
--- NOTE | 2019-05-04 15:23 | NUR ---
THIS AFTERNOON CM SPOKE WITH PT'S SON ALIZA AND NOTIFIED HIM THAT PHYSICAINS HERE AND AT HOSPICE WERE TO DO A PEER TO PEER TO DETERMINE POSSIBLE ADMISSION. CM INDICATED THAT CM WOULD FOLLOW UP WITH HIM SOON CM HEARD BACK FROM THEM. AROUND 2:50 THIS AFTERNOON NURSE INDICATED THAT PT WAS ACTIVELY PASSING. PT PASSED SHORTLY AFTER. DR. STRICKLAND AND SPIRITUAL CARE WERE NOTIFIED. NURSE FACILITATING END OF LIFE ARRANGEMENTS. NO OTHER CM INTERVENTION INDICATED. CASE CLOSED,
--- NOTE | 2019-05-04 16:27 | NUR ---
PT HAS BEEN ON COMFORT CARE TODAY. UNRESPONSIVE, BREATHING LABORED. MOTTLING THROUGHOUT BODY. LETY AND DAUGHTER HAS BEEN AT THE BEDSIDE THROGHOUT THE DAY. PT DID PASS AWAY AT 1455. SON AND DAUGHTER GREIVING APPROPRIATLY.
--- NOTE | 2019-05-04 16:33 | HC ---
[facility] [place] [address] CONSULTATION Name: MECHELLE BYERS Room #: 459- ADM IN M.R.#: [id number] Admission: 04/22/19 Attend Phys: Nivia Mclean MD Discharge: Date of : 10[birth year] Report #: [id number] THIS REPORT FOR: //name// CC: Blake Schneider REASON FOR CONSULTATION: Right hip fracture. HISTORY OF PRESENT ILLNESS: The patient is an 88-year-old female who usually ambulates with a walker, got up this morning about 4 a.m. to go to the bathroom and fell onto her right side, sustaining a right hip fracture. She was seen in an outside facility, diagnosed with a hip fracture and transferred up here. She apparently has had an elevated troponin level and was admitted to CCU. She has some accompanying medical history. CD with a CT scan of the hip is not able to be reviewed at this time. She also had some left wrist x-rays. MEDICATIONS: Reviewed from the ER note show cholecalciferol, Florajen, calcium gluconate, BenGay, magnesium, Citrucel, memantine, carvedilol, potassium chloride, escitalopram, alendronate, losartan, furosemide, gabapentin, acetaminophen, loperamide, alprazolam, magnesium hydroxide, quetiapine and zinc oxide. ALLERGIES: No known drug allergies. PAST MEDICAL HISTORY: Significant for hypertension, dementia. Family denies a history of congestive heart failure, but there is a suggestion of a history of pulmonary edema. REVIEW OF SYSTEMS: MUSCULOSKELETAL: Denies other injury. NEUROLOGIC: Denies any numbness or tingling in her extremities. SOCIAL HISTORY: Ambulates with a walker, lives in an assisted living facility. Denies smoking or drinking alcohol. LABORATORY STUDIES: Done on the date of admission show white blood cell count 11.2, hemoglobin 13.3, hematocrit 42.8, platelet count is pending. Chemistry is grossly normal. Her creatinine is slightly elevated at 1.2. PHYSICAL EXAMINATION: VITAL SIGNS: Her temperature is 36.4, heart rate is 76, respiratory rate 20, blood pressure ____ /85. GENERAL: She is awake and alert. Family is at her bedside. She is actually oriented x 3. EXTREMITIES: Examination of her bilateral upper extremities distally neurovascularly intact. Brisk capillary refill. She has grossly motor and [facility] [address] [place] [address] CONSULTATION Name: MECHELLE BYERS Room #: 459-P ADM IN M.R.#: [id number] Admission: 04/22/19 Attend Phys: Nivia Mclean MD Discharge: Date of : 10/[birth year] Report #: [id number] sensory intact. She moves her bilateral upper extremities without pain. She is nontender to palpation throughout the entire bilateral upper extremities. Bilateral lower extremities, the right leg is slightly shortened. She has grossly motor and sensory intact. There is no tenderness to palpation throughout the bilateral knees, ankles or feet. There is mild pain with range of motion of the right hip. No pain with range of motion of left hip. Radiographs are unable to be reviewed. CT scan is unable to be reviewed as well and I am not sure that radiographs have actually been taken. These will be ordered. IMPRESSION AND PLAN: Probable right hip fracture. There is a suggestion that it may be an intertrochanteric fracture based on the report, but I would need to see the images. Plan for surgical stabilization once the patient is medically cleared. Since this will be Wednesday or so, we will await medical clearance. This could be done on Wednesday if she is medically optimized. We briefly discussed the treatment of hip fractures. The risks, benefits, alternatives and complications including but not limited to blood clots, decreased ambulatory level, infection, damage to vessels or nerves, nonunion, malunion, hardware failure. The family and the patient were amenable to this course of treatment. Questions were encouraged and answered to the best of my ability. <ELECTRONICALLY SIGNED> By: Sherry Cedillo MD 05/04/19 1633 1612 2114 Sherry Cedillo MD /nt
--- NOTE | 2019-05-04 16:33 | O ---
[facility] [place] [address] OPERATIVE REPORT Name: MECHELLE BYERS Room #: 459-P ADM IN M.R.#: [id number] Admission: 04/22/19 Attend Phys: Nivia Mclean MD Discharge: Date of : 10/[birth year] Report #: [id number] THIS REPORT FOR: //name// CC: Blake Schneider DATE OF SERVICE: 04/23/2019 PREOPERATIVE DIAGNOSIS: Right intertrochanteric hip fracture. POSTOPERATIVE DIAGNOSIS: Right intertrochanteric hip fracture. PROCEDURE PERFORMED: Intramedullary nail fixation, right intertrochanteric hip fracture. SURGEON: Sherry Cedillo MD ANESTHESIA: General mask anesthesia. ESTIMATED BLOOD LOSS: 100 mL. COMPLICATIONS: None. CONDITION: Stable. DISPOSITION: Recovery room. IMPLANTS USED: Synthes trochanteric fixation nail 10 mm in diameter. INDICATIONS: The patient is an 88-year-old female with the above-mentioned diagnosis. She elects for operative treatment. The risks, benefits, alternatives and complications were discussed including but not limited to infection, damage to vessels or nerves, nonunion, malunion, hardware failure, hardware rotation, blood clots and decreased ambulatory level. Informed consent was obtained. The patient's son was at her bedside. Informed consent was obtained. The correct extremity was identified by myself after verbal with the patient as well as visual confirmation and signed informed consent. DESCRIPTION OF PROCEDURE: The patient was brought to the operating room and placed on the operating room. She underwent general anesthesia. She was then placed on the fracture table with taking care of pad, bony prominences, and neurovascular structures. The right leg was placed into gentle traction and adducted and slightly internally rotated. Fluoroscopy was brought in, which showed the ability to achieve a good AP and lateral view and that the fracture was reduced nicely. The right lower extremity was sterilely prepped and draped [address] [address] OPERATIVE REPORT Name: MECHELLE BYERS Room #: 459-P [facility] IN M.R.#: [id number] Admission: 04/22/19 Attend Phys: Nivia Mclean MD Discharge: Date of : 10/[birth year] Report #: [id number] in usual fashion. Final timeout was taken to verify correct patient, operative procedure, operative site, all concurred. Next, the greater trochanter was identified with a Puri elevator and approximately, a 6 cm incision was made proximal to the fascia, was incised and the greater trochanter was easily palpable. A guidewire was placed down the shaft of the femur from the greater trochanter. It was checked on fluoroscopy in both AP and lateral planes and was readjusted a few times. Once it was found to be in the appropriate position, a soft tissue protector was placed and then the proximal femur was drilled over the guidewire. Next, a 10 mm nail was placed down the femur. It was followed using fluoroscopy all the way to the tip. There looked to be in excellent condition. The lateral view was also showed good left lateral position. The guidewire was removed. The guide for the helical blade was placed. The skin and fascia was incised. The guide was placed all the way down to the bone and a guidewire was placed into the head. This was repositioned a few times and once this was found to be in good position, the proximal cortex was drilled and then the wire was measured approximately 98 mm and so a 90 mm helical blade was placed. This was too short, so it was removed and changed out for a 95 mm. This had a good position in the middle posterior portion of the head as confirmed on both AP and lateral views. Next, traction was removed and the instrumentation was removed for the helical blade. Helical blade was locked into place with the set screw and then the skin and fascia was incised for the distal locking screw. The distal locking screw was placed without difficulty. The position was checked in both AP and lateral planes and found to be appropriate. It had good bicortical fixation. Final x-rays included an AP and lateral views showed good position of the fracture and good position of the hardware. The wounds were thoroughly irrigated. The deep fascia was closed with 0 Vicryl, subcutaneous tissue was closed with 2-0 Vicryl and skin was closed with law. Wound dressed with Xeroform and sterile gauze. She was placed in a bulky dressing. All toes were pink with brisk capillary refill at the conclusion of the case. All sponge and needle counts were correct. The patient was transferred to postoperative recovery room in stable condition. <ELECTRONICALLY SIGNED> By: Sherry Cedillo MD 05/04/19 1633 1222 1236 Sherry Cedillo MD /nt
== END 2019-05-04 18:26 | DRG 853 ==
LOC: 4S 10:40 → 2N 13:53 → 4S 05-02 06:22 → ICU 05-03 12:28 → 4W 05-03 16:51
PROVIDERS: Hospitalist; Internal Medicine; Internal Medicine Hematology & Oncology; Orthopaedic Surgery Hand Surgery; ADMIT Internal Medicine
PROC: 0QS606Z Reposition Right Upper Femur with Intramedullary Internal Fixation Device, Open Approach (ICD-10-PCS; 2019-04-23)
PROC: 05HY33Z Insertion of Infusion Device into Upper Vein, Percutaneous Approach (ICD-10-PCS; principal; 2019-05-01)
DX: A41.9 Sepsis, unspecified organism (principal); S72.001A Fracture of unspecified part of neck of right femur, initial encounter for closed fracture; G92 Toxic encephalopathy; J69.0 Pneumonitis due to inhalation of food and vomit; J96.00 Acute respiratory failure, unspecified whether with hypoxia or hypercapnia; I50.43 Acute on chronic combined systolic (congestive) and diastolic (congestive) heart failure; D62 Acute posthemorrhagic anemia; N17.9 Acute kidney failure, unspecified; N39.0 Urinary tract infection, site not specified; E87.0 Hyperosmolality and hypernatremia; K56.7 Ileus, unspecified; W18.39XA Other fall on same level, initial encounter; Y93.01 Activity, walking, marching and hiking; I11.0 Hypertensive heart disease with heart failure; F03.90 Unspecified dementia, unspecified severity, without behavioral disturbance, psychotic disturbance, mood disturbance, and anxiety; F41.9 Anxiety disorder, unspecified; I35.0 Nonrheumatic aortic (valve) stenosis; I34.0 Nonrheumatic mitral (valve) insufficiency; I07.1 Rheumatic tricuspid insufficiency; I27.20 Pulmonary hypertension, unspecified; K59.00 Constipation, unspecified; D69.6 Thrombocytopenia, unspecified; E87.5 Hyperkalemia; Y99.8 Other external cause status; Z79.899 Other long term (current) drug therapy; Y92.012 Bathroom of single-family (private) house as the place of occurrence of the external cause; Z90.49 Acquired absence of other specified parts of digestive tract; Z90.2 Acquired absence of lung [part of]; Z90.710 Acquired absence of both cervix and uterus
CPT/HCPCS: 10047; 10081; 10102; 10797; 50010; 50101; 50133; 50386; 51412; 51538; 51817; 52145; 52146; 52304; 56524; 57092; 62110; 62900; 70005